=== PATIENT | male | born 2000 | race Caucasian/White ===

== ENCOUNTER 2019-02-28 17:20 | Emergency (ER) | payer MEDICAID, OTHER ==
[~2019-02-28] VITALS: Ht 177.8 cm; Wt 63.5 kg
[2019-02-28 18:19] LABS: Basophils # (auto) 0 uL; Basophils % (auto) 0.7 % (0.0-2.0); Eosinophils # (auto) 0.1 uL; Eosinophils % (auto) 1.2 % (0.0-7.0); Hematocrit 41.1 % (41.0-53.0); Hemoglobin 13.9 g/dL (13.5-17.5); Lymphocytes # (auto) 1.7 uL; Lymphocytes % (auto) 24.7 % (10.0-50.0); Mean Corpuscular Hemoglobin 31.7 pg (28.0-32.0); Mean Corpuscular Hgb Conc. 33.7 g/dL (32.0-36.0); Monocytes # (auto) 0.5 uL; Monocytes % (auto) 6.8 % (0.0-12.0); Neutrophils # (auto) 4.7 uL; Neutrophils % (auto) 66.6 % (37.0-80.0); Nucleated Red Blood Cells % 0.1 %; Platelet Count (auto) 224 10^3/uL (140-450); Red Blood Cells 4.37 10^6/uL (4.5-5.90)
[2019-02-28 18:35] LABS: Albumin 4.1 g/dL (3.4-5.0); Anion Gap 10 (5-15); BUN/Creatinine Ratio 8.8; Blood Urea Nitrogen 9 mg/dL (7-18); Calcium 8.5 mg/dL (8.5-10.1); Carbon Dioxide 23 mmol/L (21-32); Chloride 108 mmol/L (98-107); GFR African American 121 mL/min; GFR Non-African American 100 mL/min; Glucose 98 mg/dL (74-106); Potassium 3.7 mmol/L (3.5-5.1); Sodium 141 mmol/L (136-145)
[2019-02-28 18:38] LABS: Alanine Aminotransferase 24 U/L (16-61); Alkaline Phosphatase 62 U/L (45-117); Aspartate Aminotransferase 18 U/L (15-37); Bilirubin, Total 0.8 mg/dL (0.2-1.0); Total Protein 7.2 g/dL (6.4-8.2)
[2019-02-28] MEDS ORDERED: DIP25C PO (19:09)
[2019-02-28] MEDS ORDERED: RISP2TAB62 PO (19:09)
[2019-02-28] MEDS ORDERED: DIVA500T53 PO (19:09)
[2019-02-28] MEDS ORDERED: HAL5T PO (19:09)
[2019-02-28] MEDS ORDERED: HYDR50TA69 PO (19:09)
[2019-02-28 19:23] LABS: Urine Bacteria NONE SEEN /hpf (None Seen); Urine Blood Negative /uL (Negative); Urine Specific Gravity 1.005 (1.001-1.035); Urine WBC <1 /hpf (0 - 3)
[2019-02-28 19:26] LABS: Blood Alcohol < 3.0 mg/dL (0-5); Magnesium 2.3 mg/dL (1.6-2.6)
[2019-02-28 19:29] LABS: Salicylate < 1.7 mg/dL (2.8-20.0)
[2019-02-28] MEDS ORDERED: HALOPERIDOL 5 MG TAB PO ONE (19:30)
[2019-02-28 19:33] LABS: Alcohol, Urine < 3.0 mg/dL (0-5); Amphetamine Screen, Urine NEGATIVE (NEGATIVE); Barbiturate Scree,Urine NEGATIVE (NEGATIVE); Benzodiazephine Screen, Urine NEGATIVE (NEGATIVE); Cannabinoid Screen, Urine POSITIVE (NEGATIVE); Cocaine Screen, Urine NEGATIVE (NEGATIVE); Opiate Scree,Urine NEGATIVE (NEGATIVE); Phencyclidine Screen, Urine NEGATIVE (NEGATIVE)
[2019-02-28 19:39] LABS: Acetaminophen < 2.0 ug/mL (10-30)
[2019-03-01] MEDS: OLANZapine 5 MG TAB PO PRN ×2 (03:55→13:58)
[2019-03-01] MEDS ORDERED: HALOPERIDOL LACTATE 5 MG/ML INJ VIAL ONE (06:15)
[2019-03-01] MEDS ORDERED: HALOPERIDOL LACTATE 5 MG/ML INJ VIAL IM ONE (06:15)
[2019-03-01] MEDS ORDERED: LORazepam 2MG/ML-1ML VIAL ONE (09:28)
[2019-03-01] MEDS ORDERED: LORazepam 2MG/ML-1ML VIAL IM ONE (09:30)
[2019-03-01] MEDS ORDERED: HALOPERIDOL 5 MG TAB PO SCH (10:00)
[2019-03-01] MEDS ORDERED: risperiDONE 1 MG TAB PO SCH (10:00)
[2019-03-01] MEDS ORDERED: hydrOXYzine 25 MG TAB or CAP PO SCH (10:00)
[2019-03-01 18:49] VITALS: BP 107/57
[2019-03-01] MEDS ORDERED: diphenhdrAMINE HCL 25 MG CAP PO SCH (22:00)
== END 2019-03-01 19:19 | disposition short-term general hospital (02) ==
LOC: EDBD 17:20 → ER 17:27 → EDSEX 17:27 → ER 03-01 19:19
DX: F23 Brief psychotic disorder (principal); F32.9 Major depressive disorder, single episode, unspecified
CPT/HCPCS: 36415; 71045; 80053; 80307; 80320; 80329; 81001; 83735; 85025; 94761; 96372; 99285; J1630; J2060